=== PATIENT | male | born 1965 ===

== ENCOUNTER → 2018-07-03 18:03 | Outpatient (REF) | payer OTHER, SELFPAY ==
[2018-07-03 20:11] LABS: Urine N gonorrhoeae NOT DETECTED
[2018-07-03 20:20] LABS: Urine Chlamydia NOT DETECTED
== END ==
LOC: LAB 18:03
PROVIDERS: Visit Provider Nurse Practitioner Acute Care
DX: Z20.2 Contact with and (suspected) exposure to infections with a predominantly sexual mode of transmission (principal)
CPT/HCPCS: 87491; 87591; 87661